=== PATIENT | male | born 2005 | race Caucasian/White ===

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

== ENCOUNTER 2024-01-26 12:08 | Emergency (ER) | payer OTHER ==
[~2024-01-26] VITALS: Ht 190.5 cm; Wt 81.7 kg
[~2024-01-26 12:08] MED LIST changes: +Robaxin-750750 MG PO
[2024-01-26 12:30] VITALS: BP 132/99
[2024-01-26] MEDS ORDERED: NS 1,000 ML IV SCH (12:35)
[2024-01-26] MEDS ORDERED: Dexamethasone Sod Phos 10 MG/ML 1ML VIAL PO ONE (12:35)
[2024-01-26] MEDS ORDERED: Ketorolac Tromethamine 15mg Vial IV ONE (12:35)
[2024-01-26 13:02] LABS: Hematocrit 44.3 % (37.0-53.0); Hemoglobin 15.2 g/dL (13.5-17.5); Mean Corpuscular HGB 29.2 pg (26.0-34.0); Mean Corpuscular HGB Conc 34.3 g/dL (31.5-36.5); Mean Corpuscular Volume 85 fL (80-100); Mean Platelet Volume 9.9 fL (9.1-12.4); Platelet Count 306 K/mm3 (150-400); RDW Standard Deviation 37.8 fL (35.1-46.3); Red Blood Cell Count 5.21 M/mm3 (4.30-5.90); White Blood Cell Count 21.19 K/mm3 (4.00-11.30)
[2024-01-26 14:56] LABS: BAND PERCENT MAN 3 % (0-8); BASOPHILS PERCENT MAN 0 % (0-2); EOSINOPHILS PERCENT MAN 0 % (0-6); LYMPHOCYTES % ATYPICAL MANUAL 4 % (0-0); LYMPHOCYTES ABSOLUTE MAN 8.89 K/mm3 (0.84-5.20); LYMPHOCYTES PERCENT MAN 38 % (21-46); MONOCYTES ABSOLUTE MAN 3.39 K/mm3 (0.16-1.47); MONOCYTES PERCENT MAN 16 % (4-13); NEUTROPHILS ABSOLUTE MAN 8.89 K/mm3 (1.96-9.15); SEG NEUTROPHILS PERCENT MAN 39 % (41-73); TOTAL CELLS COUNTED 100
[2024-01-26] MEDS ORDERED: Veetids 500500 MG PO (15:13)
== END 2024-01-26 15:25 | disposition home or self-care (01) ==
LOC: ER 12:08
PROVIDERS: Physician Assistant
DX: J02.0 Streptococcal pharyngitis (principal); B27.90 Infectious mononucleosis, unspecified without complication; Z88.2 Allergy status to sulfonamides; Z79.899 Other long term (current) drug therapy
CPT/HCPCS: 36415; 85025; 86308; 87430; 96361; 96374; 99282; J1100; J1885; J7030

== ENCOUNTER 2024-08-31 16:42 | Emergency (ER) | payer SELFPAY ==
[~2024-08-31] VITALS: Ht 190.5 cm; Wt 81.7 kg
[~2024-08-31 16:42] MED LIST changes: +Veetids 500500 MG PO
[2024-08-31 16:47] VITALS: BP 153/102
== END 2024-08-31 18:08 | disposition home or self-care (01) ==
LOC: ER 16:42
DX: M25.561 Pain in right knee (principal); Z79.899 Other long term (current) drug therapy; Z88.2 Allergy status to sulfonamides
CPT/HCPCS: 73562-RT; 99283-25